=== PATIENT | male | born 1930 | race Caucasian/White ===

== ENCOUNTER 2016-06-19 14:13 | Emergency (ER) | payer MEDICARE, OTHER ==
[2016-06-19] VITALS (12 sets, daily range): BP systolic 92–150; BP diastolic 51–73; PULSE 99–111; RESP 2–22; TEMP 99.1–99.8; O2SAT 92–100
[~2016-06-19] VITALS: Ht 182.9 cm; Wt 67.8 kg
[~2016-06-19 14:13] MED LIST: NOVOLOGP2 SQ; NOVONP2 SQ; PANGESTYME PO
--- NOTE | 2016-06-19 15:14 | PD ---
HPI . Altered mental status, hypotension, respiratory distress Chief Complaint: Respiratory Distress Time Seen by Provider: 15:08 Travel History International Travel<30 days: No Contact w/Intl Traveler<30days: No Traveled to known affect area: No History of Present Illness HPI History is obtained from medics and NH record. Patient is unable to provide history. He has reportedly had a decline in his normally poor health for the past week. He has reportedly had increased confusion, low blood pressure and respiratory difficulty. The medics report that they treated him in route with 2 nebs, Solu-Medrol and IV fluids. No further history is currently unobtainable. PFSH Past Medical History Hx Anticoagulant Therapy: Yes Blood Disorders: No Anxiety: No Depression: No Cancer: No Cardiovascular Problems: Yes High Cholesterol: Yes COPD: Yes Diabetes: Yes Patient Takes Glucophage: No Genitourinary: No Hypertension: Yes Immune Disorder: No Musculoskeletal: No Neurologic: Yes (BRAIN BLEED IN 1988) Psychiatric: No Reproductive: No Respiratory: Yes Tetanus Vaccination: < 5 Years Influenza Vaccination: No Past Surgical History Abdominal Surgery: Yes (PANCREAS REMOVAL-1978) Other Surgery: Yes Social History Alcohol Use: No Tobacco Use: No Substance Use: No Allergies-Medications (Allergen,Severity, Reaction): Coded Allergies: No Known Allergies (Verified , 06/19/16) Reported Meds & Prescriptions Reported Meds & Active Scripts Active Reported Vitamin D3 (Cholecalciferol) 2,000 Unit Tab 2,000 Units PO DAILY Lantus Inj (Insulin Glargine) 1,000 Unit/10 Ml Vial 10 Units SQ HS Novolog Inj (Insulin Aspart) 1,000 Unit/10 Ml Vial 2-12 Units SQ ACHS Max dose at bedtime ( ) units; sugars less than 70,(0) units; sugars 150-199,(2) units; sugars 200-249,(4) units; sugars 250-299,(7) units; sugars 300-349,(10) units; sugars greater than 349,(12)units. Sugars >400, call Ativan (Lorazepam) 0.5 Mg Tab 0.5 Mg PO Q6H PRN Zoloft (Sertraline HCl) 25 Mg Tab 25 Mg PO HS Namenda (Memantine) 5 Mg Tab 5 Mg PO DAILY Seroquel (Quetiapine Fumarate) 50 Mg Tab 50 Mg PO HS Zenpep (Pancrelipase) 10,000-34,000-55,000 Units Cap 3 Cap PO TIDPC Pravastatin 40 Mg Tab 40 Mg PO HS Ditropan (Oxybutynin Chloride) 5 Mg Tab 5 Mg PO HS Lisinopril 20 Mg Tab 20 Mg PO DAILY Symbicort Inh (Budesonide/Formoterol Fumarate) 80-4.5 Mcg/Act Aero 2 Puff INH BID Ventolin Hfa 18 GM Inh (Albuterol Sulfate) 90 Mcg/Act Aer 2 Puff INH QID PRN Magnesium Gluconate 500 Mg Tab 500 Mg PO DAILY Amlodipine (Amlodipine Besylate) 10 Mg Tab 10 Mg PO DAILY Metoprolol Tartrate 25 Mg Tab 12.5 Mg PO BID [place] (Hydrocodone-Acetaminophen) 7.5-325 mg Tab 2 Tab PO Q6H PRN [place] (Hydrocodone-Acetaminophen) 7.5-325 mg Tab 1 Tab PO Q6H PRN Coumadin (Warfarin) 3 Mg Tab 3 Mg PO DAILY@1600 Review of Systems ROS Limitations: Clinical Condition, Altered Mental Status, Poor Historian Except as stated in HPI: all other systems reviewed are Neg Physical Exam Narrative GENERAL: Elderly patient who is lying in bed with his eyes closed. I have not heard a verbal response from him. He is moving all 4 extremities. SKIN: Warm and dry. Extremities appear cyanotic. HEAD: Atraumatic. Normocephalic. EYES: Pupils equal and round. ENT: No nasal bleeding or discharge. Mucous membranes pink and moist. NECK: Trachea midline. Neck is supple. CARDIOVASCULAR: Regular rate and rhythm. Heart sounds are normal. RESPIRATORY: No accessory muscle use. He currently has good air movement throughout. Sats on a 15 L nonrebreather mask are 93%. GASTROINTESTINAL: Abdomen soft, non-tender, nondistended. MUSCULOSKELETAL: No obvious deformities. No edema. NEUROLOGICAL: No spontaneous eye opening. No verbal response. Spontaneous movement of all 4 extremities. PSYCHIATRIC: Unable to assess. Data Data Last Documented VS Vital Signs Date Time Temp Pulse Resp B/P Pulse Ox O2 Delivery O2 Flow Rate FiO2 06/19/16 17:00 106 17 118/53 98 Nasal Cannula 4 06/19/16 16:00 60 06/19/16 14:59 99.8 Orders Complete Blood Count With Diff (06/19/16 15:08) Comprehensive Metabolic Panel (06/19/16 15:08) B-Type Natriuretic Peptide (06/19/16 15:08) Ckmb (Isoenzyme) Profile (06/19/16 15:08) Troponin I (06/19/16 15:08) Arterial Blood Gas (Abg) (06/19/16 15:08) Influenzae A/B Antigen (06/19/16 15:08) Blood Culture (06/19/16 15:08) Iv Access Insert/Monitor (06/19/16 15:08) Electrocardiogram (06/19/16 15:08) Ecg Monitoring (06/19/16 15:08) Oximetry (06/19/16 15:08) Oxygen Administration (06/19/16 15:08) Chest, Single Ap (06/19/16 15:08) Sodium Chloride 0.9% Flush (Ns Flush) (06/19/16 15:15) Albuterol-Ipratropium Neb (Duoneb Neb) (06/19/16 15:15) Resp Bipap / Cpap Non Invas Vt (06/19/16 15:08) Sodium Chlor 0.9% 1000 Ml Inj (Ns 1000 M (06/19/16 15:15) Lactic Acid Sepsis Protocol (06/19/16 15:53) Insulin Human Regular Inj (Novolin R Inj (06/19/16 17:45) Dextrose 50% In Renzo (Syr) Inj (D50w (Syr (06/19/16 17:45) Sodium Bicarb 4.2% (Inf) Inj (Sodium Bic (06/19/16 17:45) Sod Polystyrene Sulfate Enema (Kayexalat (06/19/16 17:45) Labs Laboratory Tests Test 06/19/16 06/19/16 15:21 15:45 Blood Gas Puncture Site RT RADIAL Blood Gas Patient Temperature 98.6 Blood Gas HCO3 15 mmol/L Blood Gas Base Excess -10.0 mmol/L Blood Gas Oxygen Saturation 97 % Arterial Blood pH 7.28 Arterial Blood Partial 34 mmHg Pressure CO2 Arterial Blood Partial 165 mmHG Pressure O2 Arterial Blood Oxygen Content 16.6 Vol % Arterial Blood 1.1 % Carboxyhemoglobin Arterial Blood Methemoglobin 0.7 % Blood Gas Hemoglobin 11.9 G/DL Oxygen Delivery Device BIPAP Blood Gas Ventilator Setting IPAP10/EPAP5 Blood Gas Inspired Oxygen 100 % White Blood Count 8.3 TH/MM3 Red Blood Count 3.82 MIL/MM3 Hemoglobin 11.7 GM/DL Hematocrit 37.3 % Mean Corpuscular Volume 97.5 FL Mean Corpuscular Hemoglobin 30.6 PG Mean Corpuscular Hemoglobin 31.4 % Concent Red Cell Distribution Width 16.2 % Platelet Count 188 TH/MM3 Mean Platelet Volume 9.3 FL Neutrophils (%) (Auto) 78.2 % Lymphocytes (%) (Auto) 11.5 % Monocytes (%) (Auto) 10.2 % Eosinophils (%) (Auto) 0.0 % Basophils (%) (Auto) 0.1 % Neutrophils # (Auto) 6.5 TH/MM3 Lymphocytes # (Auto) 1.0 TH/MM3 Monocytes # (Auto) 0.8 TH/MM3 Eosinophils # (Auto) 0.0 TH/MM3 Basophils # (Auto) 0.0 TH/MM3 CBC Comment DIFF FINAL Differential Comment Sodium Level 132 MEQ/L Potassium Level 6.0 MEQ/L Chloride Level 97 MEQ/L Carbon Dioxide Level 15.6 MEQ/L Anion Gap 19 MEQ/L Blood Urea Nitrogen 125 MG/DL Creatinine 4.34 MG/DL Estimat Glomerular Filtration 13 ML/MIN Rate Random Glucose 397 MG/DL Lactic Acid Level 2.7 mmol/L Calcium Level 8.4 MG/DL Total Bilirubin 0.8 MG/DL Aspartate Amino Transf 10 U/L (AST/SGOT) Alanine Aminotransferase 18 U/L (ALT/SGPT) Alkaline Phosphatase 81 U/L Total Creatine Kinase 92 U/L Troponin I LESS THAN 0.02 NG/ML Total Protein 7.0 GM/DL Albumin 2.5 GM/DL [facility] Medical Decision Making Medical Screen Exam Complete: Yes Emergency Medical Condition: Yes Medical Record Reviewed: Yes (past medical history includes diabetes, hypertension, COPD, pancreatitis and dementia) Interpretation(s) EKG shows a sinus rhythm with a ventricular rate of 102. No acute ischemic changes. Except for his rate, his EKG is unchanged from previous. Differential Diagnosis Differential diagnosis of dyspnea includes but is not limited to congestive heart failure, pneumonia, wheezing, pneumothorax, pulmonary embolism Narrative Course Patient presents to us from the group home for dyspnea, low blood pressure and worsened mental status. He does have a DNR. I will start BiPAP. CBC & BMP Diagram 06/19/16 15:45 pH 7.28, pCO2 34, pO2 165 on O2 at 100% via BiPAP. LA 2.7 Last Impressions Chest X-Ray 06/19/16 1508 Signed Impressions: Service Date/Time: Sunday, June 19, 2016 15:41 - CONCLUSION: 1. Focal consolidation left upper lobe measuring around 5 cm in maximal diameter. Close radiographic followup recommended. Minimal subsegmental basilar airspace disease. Lexx Vance MD The chest x-ray was independently viewed by me Critical Care Narrative Aggregate critical care time was minutes. Time to perform other separately billable procedures was not included in the critical care time. My time did not include minutes spent treating any other patients simultaneously or on activities that did not directly contribute to the patient's treatment. The services I provided to this patient were to treat and/or prevent clinically significant deterioration due to hypotension, respiratory distress I provided critical care services requiring my management, as noted below: Chart data review, documentation time, medication orders and management, vital sign assessments/reviewing monitor data, ordering and reviewing lab tests, ordering and interpreting/reviewing x-rays and diagnostic studies, care of the patient and discussion of the patient with the admitting physicians Physician Communication Physician Communication Dr. Chamberlain will admit. Diagnosis Primary Impression: Respiratory distress Additional Impressions: Hyperkalemia Acute renal failure Qualified Code: N17.9 - Acute renal failure, unspecified acute renal failure type Admitting Information Admitting Physician Requests: Admit Condition: Samira Shrestha MD Jun 19, 2016 15:14
[2016-06-19] MEDS ORDERED: SODIUM CHLOR 0.9% 1000 ML INJ 1,000 ML IV ONE (15:15)
[2016-06-19 15:31] LABS: BLOOD GAS CARBOXYHEMOGLOBIN 1.1 % (0-4); BLOOD GAS HCO3 15 mmol/L (22-26); BLOOD GAS METHEMOGLOBIN 0.7 % (0-2); BLOOD GAS O2 HGB SATURATION 97 % (90-100); BLOOD GAS OXYGEN CONTENT 16.6 Vol % (12.0-20.0); BLOOD GAS PCO2 34 mmHg (38-42); BLOOD GAS PO2 165 mmHG (61-120); BLOOD GAS TOTAL HGB 11.9 G/DL (12.0-16.0); CRITICAL VALUE YES; DRAW SITE RT RADIAL; FIO2 100 %; NUMBER OF ARTERIAL PUNCTURES 1; OXYGEN DEVICE BIPAP; STAT YES; TEMP CORR TO 98.6; VENT SETTINGS IPAP10/EPAP5
[2016-06-19] MEDS: RESP: ALBUTEROL 2.5 MG/IPRATROPIUM 0.5 MG NEB (SCH) INH (15:38)
[2016-06-19] MEDS: SODIUM CHLORIDE 0.9% FLUSH 10 ML FLUSH IVF PRN ×2 (16:11→18:16)
[2016-06-19] MEDS ORDERED: METO25TA3 PO (16:32)
[2016-06-19] MEDS ORDERED: HYDR-3288 PO (16:32)
[2016-06-19] MEDS ORDERED: COUM3TAB PO (16:32)
[2016-06-19] MEDS ORDERED: AMLO10TA2 PO (16:32)
[2016-06-19] MEDS ORDERED: MAGN500T5 PO (16:34)
[2016-06-19] MEDS ORDERED: SYMB80AE INH (16:34)
[2016-06-19] MEDS ORDERED: VENTAER INH (16:34)
[2016-06-19] MEDS ORDERED: LISI-515 PO (16:35)
--- NOTE | 2016-06-19 16:39 | RADRPT ---
EXAM DATE/TIME: 06/19/2016 15:41 [facility] COMPARISON: CHEST SINGLE AP, January 21, 2016, 17:22. INDICATIONS : Shortness of breath. MEDICAL HISTORY : Hypertension. SURGICAL HISTORY : None. ENCOUNTER: Initial ACUITY: 1 day PAIN SCORE: 0/10 LOCATION: Bilateral chest FINDINGS: There is focal airspace disease in the left upper lobe, possibly a small pneumonia. Close radiographi c followup recommended to exclude underlying mass. Minimal basilar opacity. No effusions. Heart size within normal limits. Tortuous aorta. CONCLUSION: 1. Focal consolidation left upper lobe measuring around 5 cm in maximal diameter. Close radiographic followup recommended. Minimal subsegmental basilar airspace disease. Lexx Vance MD on June 19, 2016 at 16:34 Board Certified Radiologist. This report was verified electronically.
[2016-06-19] MEDS ORDERED: OXYB5TAB10 PO (16:42)
[2016-06-19 16:52] LABS: AUTOMATED NEUTROPHIL # 6.5 TH/MM3 (1.8-7.7); BASOPHIL % 0.1 % (0.0-2.0); HEMATOCRIT 37.3 % (39.0-51.0); HEMO FLAGS DIFF FINAL; LYMPH % 11.5 % (9.0-44.0); MEAN CELL VOLUME 97.5 FL (80.0-100.0); MEAN CORPUSCULAR HEMOGLOBIN 30.6 PG (27.0-34.0); MEAN CORPUSCULAR HGB CONC 31.4 % (32.0-36.0); MONO % 10.2 % (0.0-8.0); NEUT % 78.2 % (16.0-70.0); PLATELET COUNT 188 TH/MM3 (150-450); RED BLOOD COUNT 3.82 MIL/MM3 (4.50-5.90); RED CELL DISTRIBUTION WIDTH 16.2 % (11.6-17.2); WHITE BLOOD COUNT 8.3 TH/MM3 (4.0-11.0)
[2016-06-19] MEDS ORDERED: SERO50TA PO (16:58)
[2016-06-19] MEDS ORDERED: PRAV40TA2 PO (16:58)
[2016-06-19] MEDS ORDERED: NAME5TAB2 PO (16:58)
[2016-06-19] MEDS ORDERED: ZENP1000 PO (16:58)
[2016-06-19] MEDS ORDERED: ZOLO25TA PO (17:02)
[2016-06-19] MEDS ORDERED: LORA-392 PO (17:05)
[2016-06-19] MEDS ORDERED: NOVOLOGP2 SQ (17:05)
[2016-06-19 17:07] LABS: ALT (GPT) 18 U/L (12-78); ANION GAP 19 MEQ/L (5-15); AST (GOT) 10 U/L (15-37); BICARBONATE 15.6 MEQ/L (21.0-32.0); BLOOD UREA NITROGEN 125 MG/DL (7-18); CHLORIDE 97 MEQ/L (98-107); GLOMERULAR FILTRATION RATE 13 ML/MIN (>89); SODIUM (NA) 132 MEQ/L (136-145)
[2016-06-19] MEDS ORDERED: LANTUS2P SQ (17:07)
[2016-06-19] MEDS ORDERED: VITA200012 PO (17:08)
[2016-06-19 17:11] LABS: ALKALINE PHOSPHATASE 81 U/L (45-117); TOTAL BILIRUBIN ADULT 0.8 MG/DL (0.2-1.0)
[2016-06-19 17:17] LABS: CREATINE KINASE 92 U/L (39-308)
[2016-06-19] MEDS ORDERED: INSULIN HUMAN REGULAR 1,000 UNITS/10 ML VIAL IV PUSH ONE ×2 (17:45→20:15)
[2016-06-19] MEDS ORDERED: SODIUM POLYSTYRENE SULFONATE 30 GM/120 ML ENEMA RECTAL ONE (17:45)
[2016-06-19] MEDS ORDERED: DEXTROSE 50% IN WATER 50 ML SYRINGE IV ONE (17:45)
[2016-06-19] MEDS ORDERED: SODIUM BICARB 4.2% (INF) INJ 5 MEQ/10 ML SYR IV PUSH ONE (17:45)
[2016-06-19] MEDS ORDERED: AZITHROMYCIN INJ 500 MG in SODIUM CHLOR 0.9% 250 ML INJ 250 ML IV SCH (18:00)
[2016-06-19] MEDS: methylPREDNISolone SOD SUCC 40 MG/1 ML VIAL IV SCH (18:16)
[2016-06-19] MEDS: metroNIDAZOLE 500 MG INJ 100 ML IV SCH (18:16)
[2016-06-19] MEDS: PIPERACIL-TAZO 4.5 GM PREMIX 100 ML IV SCH (18:16)
[2016-06-19] MEDS ORDERED: SODIUM POLYSTYRENE SULFONATE SUSP 15 GM/60 ML CUP RECTAL ONE (18:30)
[2016-06-19] MEDS ORDERED: SODIUM CHLOR 0.9% 1000 ML INJ 1,000 ML IV SCH (18:35)
--- NOTE | 2016-06-19 18:35 | HHI.HP ---
[facility] Dalton Rhodes MD Admission Diagnosis Diagnoses: (1) Severe sepsis (2) Metabolic acidosis (3) Acute metabolic encephalopathy (4) COPD with exacerbation (5) Chronic obstructive pulmonary disease with acute lower resp infection (6) Protein-calorie malnutrition, severe (7) Acute chronic obstructive pulmonary disease with respiratory failure (8) Supratherapeutic INR (9) Acute renal failure superimposed on stage 4 chronic kidney disease (10) Hyperkalemia (11) Respiratory distress Chief Complaint: AMS, shortness of breath Travel History International Travel<30 Days: No Contact w/Intl Traveler <30 Da: No Traveled to Known Affected Are: No Sepsis Criteria SIRS Criteria (2 or more): Heart rate over 90, RR > 20 or PaCO2 < 32 Severe Sepsis (+one): Lactate >2, Acute Oliguria/Renal Failure Criteria Outcome: Meets severe sepsis criteria History of Present Illness 85-year-old male with history of diabetes mellitus, HTN, COPD, recurrent pancreatitis, DVT, BPH, PVD, brain aneurysm, CKD, presents from [facility] for altered mental status, declining health over the past week. Patient is very drowsy, only able to say his name and then falls back asleep; unable to provide any reliable medical history. Most of the history obtained from [facility] by the [facility], also RN contacted patient's who reports patient is DNR, agrees to Bipap but not CPR or intubation. Per ER report, the patient has been declining over the past week, with increased confusion, low blood pressure, and difficulty breathing. Patient was transported via [facility], received duo nebs, IV Solu-Medrol, and IV fluids en route. Upon arrival, CXR showed focal consolidation MIRNA, ABG with pH 7.28, pCO2 34, pO2 165 on O2 at 100% via BiPAP. Lactic acid 2.7. Patient was placed on BiPAP with some improvement, now on 4L nasal cannula. Patient is being admitted with severe sepsis secondary to healthcare associated pneumonia. Review of Systems ROS Limitations: Clinical Condition, Altered Mental Status, Poor Historian Past Family Social History Past Medical History diabetes mellitus HTN HLD COPD recurrent pancreatitis DVT BPH PVD brain aneurysm CKD Past Surgical History Pancreatectomy Tonsillectomy Adenoidectomy Cholecystectomy Bilateral cataract surgery Hernia repair Reported Medications Vitamin D3 (Cholecalciferol) 2,000 Unit Tab 2,000 Units PO DAILY Lantus Inj (Insulin Glargine) 1,000 Unit/10 Ml Vial 10 Units SQ HS Novolog Inj (Insulin Aspart) 1,000 Unit/10 Ml Vial 2-12 Units SQ ACHS Max dose at bedtime ( ) units; sugars less than 70,(0) units; sugars 150-199,(2) units; sugars 200-249,(4) units; sugars 250-299,(7) units; sugars 300-349,(10) units; sugars greater than 349,(12)units. Sugars >400, call Ativan (Lorazepam) 0.5 Mg Tab 0.5 Mg PO Q6H PRN Zoloft (Sertraline HCl) 25 Mg Tab 25 Mg PO HS Namenda (Memantine) 5 Mg Tab 5 Mg PO DAILY Seroquel (Quetiapine Fumarate) 50 Mg Tab 50 Mg PO HS Zenpep (Pancrelipase) 10,000-34,000-55,000 Units Cap 3 Cap PO TIDPC Pravastatin 40 Mg Tab 40 Mg PO HS Ditropan (Oxybutynin Chloride) 5 Mg Tab 5 Mg PO HS Lisinopril 20 Mg Tab 20 Mg PO DAILY Symbicort Inh (Budesonide/Formoterol Fumarate) 80-4.5 Mcg/Act Aero 2 Puff INH BID Ventolin Hfa 18 GM Inh (Albuterol Sulfate) 90 Mcg/Act Aer 2 Puff INH QID PRN Magnesium Gluconate 500 Mg Tab 500 Mg PO DAILY Amlodipine (Amlodipine Besylate) 10 Mg Tab 10 Mg PO DAILY Metoprolol Tartrate 25 Mg Tab 12.5 Mg PO BID [place] (Hydrocodone-Acetaminophen) 7.5-325 mg Tab 2 Tab PO Q6H PRN [place] (Hydrocodone-Acetaminophen) 7.5-325 mg Tab 1 Tab PO Q6H PRN Coumadin (Warfarin) 3 Mg Tab 3 Mg PO DAILY@1600 Allergies: Coded Allergies: No Known Allergies (Verified , 06/19/16) Active Ordered Medications Current Medications Medications (Trade) Dose Ordered Sig/Yamel Route Start Time Stop Time Status Last Admin Sodium Chloride 2 ml 2 ml UNSCH PRN IVF 06/19/16 15:15 06/19/16 16:11 Piperacillin Sod/ Tazobactam Sod 100 ml @ 200 mls/hr Q6H IV 06/19/16 18:00 UNV Azithromycin 500 mg/Sodium Chloride 250 ml @ 250 mls/hr Q24H IV 06/19/16 18:00 UNV (Flagyl 500 Mg Inj) 100 ml @ 100 mls/hr Q8H IV 06/19/16 18:00 UNV (SoluMEDROL INJ) 40 mg Q12H IV 06/19/16 18:00 UNV Family History Mother with COPD Father with LA age 67 Social History Per EMR, No reported tobacco, alcohol, or illicit drug use. Physical Exam Vital Signs Vital Signs Date Time Temp Pulse Resp B/P Pulse Ox O2 Delivery O2 Flow Rate FiO2 06/19/16 17:00 106 17 118/53 98 Nasal Cannula 4 06/19/16 16:00 99 17 150/63 100 BiPAP 60 06/19/16 16:00 20 100 BiPAP 60 06/19/16 15:30 17 100 BiPAP 60 06/19/16 15:30 100 BiPAP 60 06/19/16 15:08 109 22 132/57 92 Non-Rebreather 15 06/19/16 14:59 99.8 111 22 132/57 92 Physical Exam GENERAL: Thin chronically ill cachectic appearing elderly male patient in [facility]. Drowsy, awakes to loud voice, able to state his name but unable to obtain any further information. SKIN: Warm and dry. No rash. HEAD: Normocephalic. Atraumatic. EYES: Pupils equal and round. No scleral icterus. No injection or drainage. ENT: No nasal bleeding or discharge. Mucous membranes slightly dry. NECK: Supple. Trachea midline. CARDIOVASCULAR: Tachycardic, regular rhythm. S1, S2 noted. 2/6 systolic murmur. RESPIRATORY: No accessory muscle use. Decreased breath sounds bilateral bases, otherwise clear to auscultation. Breath sounds equal bilaterally. GASTROINTESTINAL: Scaphoid abdomen, soft, non-tender, nondistended. Normoactive bowel sounds x4. GENITOURINARY: distended bladder. MUSCULOSKELETAL: No obvious deformities. Extremities without clubbing, cyanosis , or edema. NEUROLOGICAL: Awake and alert, oriented to self only. No obvious cranial nerve deficits. Moving all extremities. Not following commands. PSYCHIATRIC: Appropriate mood and affect; insight and judgment limited. Laboratory Laboratory Tests Test 06/19/16 06/19/16 15:21 15:45 Blood Gas Puncture Site RT RADIAL Blood Gas Patient Temperature 98.6 Blood Gas HCO3 15 Blood Gas Base Excess -10.0 Blood Gas Oxygen Saturation 97 Arterial Blood pH 7.28 Arterial Blood Partial 34 Pressure CO2 Arterial Blood Partial 165 Pressure O2 Arterial Blood Oxygen Content 16.6 Arterial Blood 1.1 Carboxyhemoglobin Arterial Blood Methemoglobin 0.7 Blood Gas Hemoglobin 11.9 Oxygen Delivery Device BIPAP Blood Gas Ventilator Setting IPAP10/EPAP5 Blood Gas Inspired Oxygen 100 White Blood Count 8.3 Red Blood Count 3.82 Hemoglobin 11.7 Hematocrit 37.3 Mean Corpuscular Volume 97.5 Mean Corpuscular Hemoglobin 30.6 Mean Corpuscular Hemoglobin 31.4 Concent Red Cell Distribution Width 16.2 Platelet Count 188 Mean Platelet Volume 9.3 Neutrophils (%) (Auto) 78.2 Lymphocytes (%) (Auto) 11.5 Monocytes (%) (Auto) 10.2 Eosinophils (%) (Auto) 0.0 Basophils (%) (Auto) 0.1 Neutrophils # (Auto) 6.5 Lymphocytes # (Auto) 1.0 Monocytes # (Auto) 0.8 Eosinophils # (Auto) 0.0 Basophils # (Auto) 0.0 CBC Comment DIFF FINAL Differential Comment Sodium Level 132 Potassium Level 6.0 Chloride Level 97 Carbon Dioxide Level 15.6 Anion Gap 19 Blood Urea Nitrogen 125 Creatinine 4.34 Estimat Glomerular Filtration 13 Rate Random Glucose 397 Lactic Acid Level 2.7 Calcium Level 8.4 Total Bilirubin 0.8 Aspartate Amino Transf 10 (AST/SGOT) Alanine Aminotransferase 18 (ALT/SGPT) Alkaline Phosphatase 81 Total Creatine Kinase 92 Troponin I LESS THAN 0.02 Total Protein 7.0 Albumin 2.5 Date/Time Procedure Status Source Growth 06/19/16 15:45 Aerobic Blood Culture Received Blood Peripheral Pending 06/19/16 15:45 Anaerobic Blood Culture Received Blood Peripheral Pending Result Diagram: 06/19/16 1545 06/19/16 1545 Imaging Last Impressions Chest X-Ray 06/19/16 1508 Signed Impressions: Service Date/Time: [place], June 19, 2016 15:41 - CONCLUSION: 1. Focal consolidation left upper lobe measuring around 5 cm in maximal diameter. Close radiographic followup recommended. Minimal subsegmental basilar airspace disease. Lexx Vance MD Assessment and Plan Problem List: (1) Hyperkalemia ICD Code: E87.5 Status: Acute (2) Acute renal failure ICD Code: N17.9 Status: Acute (3) Respiratory distress ICD Code: R06.00 Status: Acute (4) Acute renal failure superimposed on stage 4 chronic kidney disease ICD Code: N17.9 Status: Acute (5) Supratherapeutic INR ICD Code: R79.1 Status: Acute (6) Acute chronic obstructive pulmonary disease with respiratory failure ICD Code: J96.00 Status: Acute (7) Protein-calorie malnutrition, severe ICD Code: E43 Status: Acute (8) Chronic obstructive pulmonary disease with acute lower resp infection ICD Code: J44.0 Status: Acute (9) Severe sepsis ICD Code: A41.9 Status: Acute (10) Metabolic acidosis ICD Code: E87.2 Status: Acute (11) Acute metabolic encephalopathy ICD Code: G93.41 Status: Acute (12) COPD with exacerbation ICD Code: J44.1 Status: Acute Assessment and Plan 85-year-old male with history of diabetes mellitus, HTN, COPD, recurrent pancreatitis, DVT, BPH, PVD, brain aneurysm, CKD, presents from [facility] for altered mental status, declining health over the past week. Severe sepsis: Tachycardic HR 111, Tachypneic RR 22, lactic acid 2.7. Source- pneumonia, see below. Check blood cultures. Started IV antibiotics for HCAP. S/ p IVF bolus in ER, continue maintenance fluids until tolerating oral intake. Monitor labs, repeat lactic acid. Monitor on telemetry. Monitor Is&Os. Admit to ICU. Health Care Associated Pneumonia: CXR images reviewed by me, shows focal consolidation MIRNA. Continue IV Zosyn, IV Azithro, IV Flagyl. S/p Bipap in ER, now on 4L NC, bipap prn. IV Solumedrol 40mg q12h. Duonebs q6h yamel and q2h prn. Monitor for improvement. Acute COPD Exacerbation: mild wheezing on exam, s/p IV Solumedrol and duonebs en route via [facility]. Continue IV Solumedrol 40mg q12h and duonebs q6h yamel and s2h prn. Continue Symbicort. Unlikely PE while on Coumadin if INR therapeutic. Acute Respiratory Failure: requiring Bipap, tachypneic. Multifactorial secondary to pneumonia and COPD. On antibiotics, duonebs, bipap, steroids. Close monitoring in ICU. Metabolic Acidosis: secondary to respiratory distress with pneumonia. ABG with pH 7.28, pCO2 34, pO2 165 on O2 at 100% via BiPAP. Giving IVF. Monitor BMP. Hyperkalemia: K 6.0. Given dextrose, insulin, sodium bicarb, and kayexalate in the ER. Repeat K tonight. Acute Metabolic Encephalopathy: presented with AMS, oriented to self only. Secondary to sepsis as above. Neuro checks. Monitor for improvement. Acute Renal Failure: Cr 4.34, previously 1.0 in . S/p IVF bolus, continue on IVF with NS. Hold lisinopril. Hyponatremia: likely secondary to dehydration/poor oral intake. Giving IVF with NS. Repeat labs. Diabetes Mellitus: chronic, hold patient's Lantus 10u sq hs. Monitor Accu-Cheks and cover with low-dose SSI. Dementia with Anxiety/Agitation: Patient's reports the patient does become agitated at night, gives permission for restraints as needed. Continue patient' s Namenda, Seroquel, Zoloft. Hypertension: chronic, hold patient's lisinopril with IVANNA. Continue patient's Norvasc and Metoprolol. Monitor BP, adjust antihypertensives as needed. Hyperlipidemia: chronic, continue patient's statin. Urinary Retention: with currently distended bladder on exam. Check bladder scan , place Abdalla if > 400cc. Continue patient's Oxybutynin. Failure to Thrive, Moderate Protein Calorie Malnutrition: Albumin 2.5. Patient cachetic on exam. Consult excavating machine operator. Consider palliative care vs hospice consult. DVT: on Coumadin, check PT/INR and continue Coumadin. GI Prophylaxis: PPI DVT Prophylaxis: on Coumadin Written by Loly Mccoy, acting as scribe for Dr. Chamberlain on 06/19/16 at 18: 34. All or portions of this note were transcribed by scribe Loly Mccoy. I, Dr. Kyree Chamberlain personally performed the history, physical exam, and medical decision making; and confirmed the accuracy of the information in the transcribed note. Authenticated by Dr. Kyree Chamberlain on 06/19/16 at 18:34. 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 In the case of services not specified as inpatient-only, they are appropriately provided as inpatient services in accordance with the 2-midnight benchmark. Estimated LOS (days): 5 days is the estimated time the patient will need to remain in the hospital, assuming treatment plan goals are met and no additional complications. Post-Hospital Plan: SNF Problem Qualifiers (1) Acute renal failure: Qualified Code: N17.9 - Acute renal failure, unspecified acute renal failure type Loly Mccoy PA-C Jun 19, 2016 18:35 Kyree Chamberlain MD Jun 19, 2016 19:05
[2016-06-19 18:44] LABS: LACTIC ACID GHOST NOT REPORTABLE
[2016-06-19] MEDS ORDERED: BISACODYL 10 MG SUPP PR PRN (18:45)
[2016-06-19] MEDS ORDERED: NALOXONE HCL 0.4 MG/ML AMP IV PRN (18:45)
[2016-06-19] MEDS ORDERED: GLUCAGON 1 MG/ML VIAL OTHER PRN (18:45)
[2016-06-19] MEDS ORDERED: RESP: ALBUTEROL 2.5 MG/IPRATROPIUM 0.5 MG NEB (PRN) NEB (18:45)
[2016-06-19] MEDS ORDERED: ONDANSETRON HCL 4 MG/2 ML VIAL IVP PRN (18:45)
[2016-06-19] MEDS ORDERED: SODIUM CHLORIDE 0.9% FLUSH 10 ML FLUSH IV FLUSH PRN (18:45)
[2016-06-19] MEDS ORDERED: ACETAMINOPHEN 325 MG TAB PO PRN (18:45)
[2016-06-19] MEDS ORDERED: ACETAMINOPHEN/HYDROcodone 325 MG/5 MG TAB PO PRN (18:45)
[2016-06-19] MEDS ORDERED: DEXTROSE 50% IN WATER 50 ML VIAL(D50) IV PUSH PRN (18:45)
[2016-06-19 19:22] LABS: INTERNATIONAL NORMALIZED RATIO 4.7 RATIO; PROTHROMBIN TIME - PATIENT 55.1 SEC (9.8-11.6)
[2016-06-19] MEDS: RESP: ALBUTEROL 2.5 MG/IPRATROPIUM 0.5 MG NEB (SCH) NEB (19:40)
[2016-06-19 20:03] LABS: BICARBONATE 17.4 MEQ/L (21.0-32.0)
[2016-06-19 20:04] LABS: POTASSIUM 5.7 MEQ/L (3.5-5.1)
[2016-06-19] MEDS: DEXT 5%-NACL 0.9% 1000 ML INJ 1,000 ML IV SCH (20:13)
[2016-06-19] MEDS ORDERED: INSULIN REGULAR (IV INFUSION) 100 UNITS in SODIUM CHLORIDE 0.9% INJ 99 ML IV SCH (20:15)
[2016-06-19] MEDS ORDERED: POTASSIUM CHLOR 20 MEQ PREMIX 100 ML IV PRN ×6 (20:15)
[2016-06-19] MEDS ORDERED: SODIUM PHOSPHATE INJ 15 MMOL in SODIUM CHLORIDE 0.9% INJ 100 ML IV PRN (20:15)
[2016-06-19] MEDS ORDERED: CHLORHEXIDINE GLUCONATE 2 % 1 PACK (2 CLOTHS) TOP PRN (20:15)
[2016-06-19] MEDS ORDERED: MISCELLANEOUS NURSING INFORMATION XX SCH (20:15)
[2016-06-19] MEDS ORDERED: SODIUM BICARBONATE 8.4% SOLN 50 MEQ/50 ML VIAL IV PRN ×2 (20:15)
[2016-06-19] MEDS ORDERED: POTASSIUM CHLOR 40 MEQ PREMIX 100 ML IV PRN ×2 (20:15)
[2016-06-19] MEDS: LIPASE/PROTEASE/AMYLASE (12,000/38,000/60,000) CAP PO SCH (20:20)
[2016-06-19] MEDS: SODIUM CHLOR 0.9% 1000 ML INJ 1,000 ML IV SCH (20:25)
[2016-06-19] MEDS: BUDESONIDE-FORMOTEROL 80/4.5 MCG INHALER INH SCH (20:27)
[2016-06-19] MEDS ORDERED: PRAVASTATIN SOD 40 MG TAB PO SCH (21:00)
[2016-06-19] MEDS ORDERED: OXYBUTYNIN CHLORIDE 5 MG TAB PO SCH (21:00)
[2016-06-19] MEDS: METOPROLOL TARTRATE 25 MG TAB PO SCH (21:00)
[2016-06-19] MEDS ORDERED: INSULIN ASPART SUPPLEMENTAL SCALE SQ SCH (21:00)
[2016-06-19] MEDS ORDERED: QUEtiapine FUMARATE 25 MG TAB PO SCH (21:00)
[2016-06-19] MEDS ORDERED: PANTOPRAZOLE SODIUM 40 MG VIAL IV PUSH SCH (21:00)
[2016-06-19] MEDS: SODIUM CHLORIDE 0.9% FLUSH 10 ML FLUSH IV FLUSH SCH (21:14)
[2016-06-19 22:39] LABS: BETA-HYDROXYBUTYRATE 5.86 MMOL/L (0.00-0.39)
[2016-06-19 23:06] LABS: BACTERIA, URINE RARE /hpf; BLOOD, URINE SMALL (NEG); COMMENT (UR) CATH-CULTURE IND; CULTURE IF INDICATED CATH CULTURE IND; GLUCOSE,URINE 150 mg/dL (NEG); HYALINE CAST, URINE 1 /lpf (RARE); KETONE, URINE NEG (NEG); MUCUS URINE FEW /lpf (OCC); NITRITE,URINE NEG (NEG); SQUAMOUS EPITHELIAL CELL URINE <1 /hpf (0-5); URINE COLOR YELLOW (YELLW/STRAW)
[2016-06-20] VITALS (8 sets, daily range): BP systolic 73–86; BP diastolic 38–45; PULSE 81–94; RESP 18–27; TEMP 98–98.6; O2SAT 98–100
[2016-06-20] MEDS ORDERED: SODIUM CHLOR 0.9% 1000 ML INJ 1,000 ML IV ONE (00:30)
[2016-06-20] MEDS: PIPERACIL-TAZO 4.5 GM PREMIX 100 ML IV SCH ×2 (01:03→05:40)
[2016-06-20] MEDS: DEXT 5%-NACL 0.9% 1000 ML INJ 1,000 ML IV SCH (01:03)
[2016-06-20 01:24] LABS: BETA-HYDROXYBUTYRATE 0.23 MMOL/L (0.00-0.39); BICARBONATE 20.5 MEQ/L (21.0-32.0); MAGNESIUM 1.7 MG/DL (1.5-2.5); POTASSIUM 3.7 MEQ/L (3.5-5.1)
[2016-06-20 01:50] LABS: CALCIUM-PROTEIN CORRECTED 7.3 MG/DL (8.5-10.1)
[2016-06-20] MEDS: metroNIDAZOLE 500 MG INJ 100 ML IV SCH ×2 (01:55→09:17)
[2016-06-20] MEDS ORDERED: CALCIUM GLUCONATE INJ 1 GM in SODIUM CHLORIDE 0.9% INJ 90 ML IV ONE (02:00)
[2016-06-20] MEDS ORDERED: INSULIN REGULAR (IV INFUSION) 100 UNITS in SODIUM CHLORIDE 0.9% INJ 99 ML IV SCH (02:30)
[2016-06-20] MEDS ORDERED: MISC INFORMATION XX ONE (02:30)
[2016-06-20] MEDS ORDERED: LACTATED RINGER'S 1000 ML INJ 1,000 ML IV ONE (02:30)
[2016-06-20] MEDS: SODIUM CHLOR 0.9% 1000 ML INJ 1,000 ML IV SCH ×2 (02:53→09:33)
[2016-06-20 03:03] LABS: LACTIC ACID GHOST NOT REPORTABLE
[2016-06-20 03:47] LABS: INTERNATIONAL NORMALIZED RATIO 5.9 RATIO; PROTHROMBIN TIME - PATIENT 70.6 SEC (9.8-11.6)
[2016-06-20 03:50] LABS: AUTOMATED NEUTROPHIL # 7.7 TH/MM3 (1.8-7.7); BASOPHIL % 0.1 % (0.0-2.0); HEMATOCRIT 33.9 % (39.0-51.0); HEMO FLAGS DIFF FINAL; LYMPH % 1.4 % (9.0-44.0); LYMPHOCYTE # 0.1 TH/MM3 (1.0-4.8); MEAN CELL VOLUME 94.4 FL (80.0-100.0); MEAN CORPUSCULAR HGB CONC 32.9 % (32.0-36.0); MONO % 9.4 % (0.0-8.0); NEUT % 89.1 % (16.0-70.0); PLATELET COUNT 196 TH/MM3 (150-450); RED BLOOD COUNT 3.59 MIL/MM3 (4.50-5.90); RED CELL DISTRIBUTION WIDTH 15.2 % (11.6-17.2); WHITE BLOOD COUNT 8.7 TH/MM3 (4.0-11.0)
[2016-06-20] MEDS ORDERED: CHLORHEXIDINE GLUCONATE 2 % 1 PACK (2 CLOTHS) TOP SCH (04:00)
[2016-06-20 04:02] LABS: ALKALINE PHOSPHATASE 62 U/L (45-117); ALT (GPT) 15 U/L (12-78); ANION GAP 8 MEQ/L (5-15); AST (GOT) 11 U/L (15-37); BICARBONATE 24.7 MEQ/L (21.0-32.0); BLOOD UREA NITROGEN 118 MG/DL (7-18); CHLORIDE 108 MEQ/L (98-107); GLOMERULAR FILTRATION RATE 15 ML/MIN (>89); MAGNESIUM 2.3 MG/DL (1.5-2.5); POTASSIUM 4.6 MEQ/L (3.5-5.1); SODIUM (NA) 141 MEQ/L (136-145); TOTAL BILIRUBIN ADULT 0.6 MG/DL (0.2-1.0)
[2016-06-20] MEDS: RESP: ALBUTEROL 2.5 MG/IPRATROPIUM 0.5 MG NEB (SCH) NEB ×2 (04:58→08:17)
[2016-06-20] MEDS: methylPREDNISolone SOD SUCC 40 MG/1 ML VIAL IV SCH (05:39)
[2016-06-20] MEDS ORDERED: SODIUM CHLORID 0.9% 500 ML INJ 500 ML IV PRN (05:45)
--- NOTE | 2016-06-20 07:46 | HHI.PR ---
Subjective Remarks Follow-up severe sepsis/HCAP/acute on chronic kidney disease stage IV/metabolic acidosis/acute on chronic respiratory failure 06/20/16-patient seen and examined, lethargic but responds to sternal rubs, worsening renal function, INR up, hypotensive despite boluses NS Objective Vitals Vital Signs Date Time Temp Pulse Resp B/P Pulse Ox O2 Delivery O2 Flow Rate FiO2 06/20/16 06:00 89 06/20/16 04:00 88 06/20/16 04:00 98.0 88 18 86/45 99 06/20/16 02:00 92 06/20/16 01:00 100 Partial Rebreather 15.00 06/20/16 00:00 98.1 94 20 81/38 98 06/20/16 00:00 93 06/19/16 22:47 99.1 109 20 92/52 96 Non-Rebreather 15 06/19/16 21:15 103 20 95/51 97 Non-Rebreather 15 06/19/16 19:43 99 Non-Rebreather 15.00 06/19/16 19:00 102 20 105/73 98 06/19/16 18:22 111 22 110/52 94 Nasal Cannula 4 06/19/16 17:00 106 17 118/53 98 Nasal Cannula 4 06/19/16 16:00 99 17 150/63 100 BiPAP 60 06/19/16 16:00 20 100 BiPAP 60 06/19/16 15:38 96 60 06/19/16 15:30 17 100 BiPAP 60 06/19/16 15:30 100 BiPAP 60 06/19/16 15:18 99 100 06/19/16 15:08 109 22 132/57 92 Non-Rebreather 15 06/19/16 14:59 99.8 111 22 132/57 92 I/O 06/19/16 06/19/16 06/19/16 06/20/16 06/20/16 06/20/16 07:00 15:00 23:00 07:00 15:00 23:00 Intake Total 3410 ml Output Total 2000 ml 450 ml Balance -2000 ml 2960 ml Intake Oral 0 ml IV Total 3410 ml Output Urine Total 2000 ml 450 ml # Voids 0 # Bowel Movements 0 Result Diagram: 06/20/16 0328 06/20/16 0328 Imaging Last Impressions Chest X-Ray 06/19/16 1508 Signed Impressions: Service Date/Time: Sunday, June 19, 2016 15:41 - CONCLUSION: 1. Focal consolidation left upper lobe measuring around 5 cm in maximal diameter. Close radiographic followup recommended. Minimal subsegmental basilar airspace disease. Lexx Vance MD Objective Remarks GENERAL: NAD however lethargic SKIN: Warm and dry. HEAD: Normocephalic. EYES: No scleral icterus. No injection or drainage. NECK: Supple, trachea midline. No JVD or lymphadenopathy. CARDIOVASCULAR: Regular rate and rhythm without murmurs, gallops, or rubs. RESPIRATORY: Breath sounds equal bilaterally. No accessory muscle use. GASTROINTESTINAL: Abdomen soft, non-tender, nondistended. MUSCULOSKELETAL: No cyanosis, or edema. BACK: Nontender without obvious deformity. No CVA tenderness. A/P Problem List: (1) Hyperkalemia ICD Code: E87.5 Status: Acute (2) Acute renal failure ICD Code: N17.9 Status: Acute (3) Respiratory distress ICD Code: R06.00 Status: Acute (4) Severe sepsis ICD Code: A41.9 Status: Acute (5) Chronic obstructive pulmonary disease with acute lower resp infection ICD Code: J44.0 Status: Acute (6) Acute chronic obstructive pulmonary disease with respiratory failure ICD Code: J96.00 Status: Acute (7) COPD with exacerbation ICD Code: J44.1 Status: Acute (8) Acute metabolic encephalopathy ICD Code: G93.41 Status: Acute (9) Metabolic acidosis ICD Code: E87.2 Status: Acute (10) Supratherapeutic INR ICD Code: R79.1 Status: Acute (11) Hypotension ICD Code: I95.9 Status: Acute (12) Acute renal failure superimposed on stage 4 chronic kidney disease ICD Code: N17.9 Status: Acute (13) Protein-calorie malnutrition, severe ICD Code: E43 Status: Acute Assessment and Plan 85-year-old male with history of diabetes mellitus, HTN, COPD, recurrent pancreatitis, DVT, BPH, PVD, brain aneurysm, CKD, presents from [facility] for altered mental status, declining health over the past week. Severe sepsis: . Source-pneumonia, Continue IV Zosyn, IV Azithro, IV Flagyl pending blood cultures. Health Care Associated Pneumonia: CXR shows focal consolidation MIRNA. Continue IV Zosyn, IV Azithro, IV Flagyl. S/p Bipap in ER, now on 4L NC, bipap prn. IV Solumedrol 40mg q12h. Duonebs q6h tasia and q2h prn. Monitor for improvement. Acute COPD Exacerbation: Continue IV Solumedrol 40mg q12h and duonebs q6h tasia and s2h prn. Continue Symbicort. Acute Respiratory Failure: Multifactorial secondary to pneumonia and COPD. On antibiotics, duonebs, bipap, steroids. Close monitoring in ICU. Metabolic Acidosis: secondary to respiratory distress with pneumonia. ABG with pH 7.28, pCO2 34, pO2 165 on O2 at 100% via BiPAP. Giving IVF. Monitor BMP. Hyperkalemia: Resolved status post treatment with dextrose, insulin, sodium bicarb, and kayexalate in the ER. Acute Metabolic Encephalopathy: presented with AMS, oriented to self only. Secondary to sepsis as above. Neuro checks. Monitor for improvement. Acute on chronic kidney disease stage IV : Cr 4.34 admission, previously 1.0 in . continue on IVF with NS. Hold lisinopril. Consult nephrology secondary to hypotension will give albumin IV 25 mg every 12H1 day. Check renal ultrasound Hyponatremia: likely secondary to dehydration/poor oral intake. Resolve with IVF with NS. Diabetes Mellitus: chronic, hold patient's Lantus 10u sq hs. patient was started on insulin drip overnight which I would discontinue today. Monitor Accu -Cheks and cover with low-dose SSI. Dementia with Anxiety/Agitation: Patient's reports the patient does become agitated at night, gives permission for restraints as needed. Continue patient' s Namenda, Seroquel, Zoloft. However secondary to lethargy hold Seroquel Hypertension: chronic, hold patient's lisinopril with IVANNA. However due to hypotension with hold patient's Norvasc and Metoprolol. Monitor BP, adjust antihypertensives as needed. Hypotension:NS boluses; and hold oral antihypertensive medication Hyperlipidemia: chronic, continue statin. Urinary Retention: Continue Oxybutynin. Failure to Thrive, Moderate Protein Calorie Malnutrition: Albumin 2.5. Patient cachetic on exam. Consult health program specialist. Supratherapeutic INR: Hold Coumadin and monitor INR DVT: Due to supratherapeutic INR, will hold Coumadin and monitor INR GI Prophylaxis: PPI DVT Prophylaxis: Bilateral SCDs Consult hospice Consult speech therapy for swallow eval as patient currently nothing by mouth Total critical care time spent 35 minutes Problem Qualifiers (1) Acute renal failure: Qualified Code: N17.9 - Acute renal failure, unspecified acute renal failure type Kyree Chamberlain MD Jun 20, 2016 07:46 Kyree Chamberlain MD Jun 20, 2016 07:46
[2016-06-20] MEDS ORDERED: ALBUMIN HUMAN 25% 25 GM/100 ML BAGP IV SCH (08:00)
[2016-06-20] MEDS ORDERED: DEXTROSE 50% IN WATER 50 ML VIAL(D50) IV PUSH PRN (08:00)
[2016-06-20] MEDS ORDERED: GLUCAGON 1 MG/ML VIAL OTHER PRN (08:00)
[2016-06-20] MEDS ORDERED: MEMANTINE HCL 5 MG TAB PO SCH (09:00)
[2016-06-20] MEDS: METOPROLOL TARTRATE 25 MG TAB PO SCH (09:00)
[2016-06-20] MEDS: BUDESONIDE-FORMOTEROL 80/4.5 MCG INHALER INH SCH (09:00)
[2016-06-20] MEDS: SODIUM CHLORIDE 0.9% FLUSH 10 ML FLUSH IV FLUSH SCH (09:16)
[2016-06-20] MEDS: LIPASE/PROTEASE/AMYLASE (12,000/38,000/60,000) CAP PO SCH (09:17)
--- NOTE | 2016-06-20 09:58 | HHI.PR ---
Addendum to Inpatient Note Addendum Reason: Additional Documentation Additional Information Patient will be discharged to Hospice care center today Discharge patient to Hospice care center Condition on discharge: Guarded soft diet Ad Sagrario activity Rx written:none Kyree Chamberlain MD Jun 20, 2016 09:58
[2016-06-20] MEDS ORDERED: INSULIN ASPART SUPPLEMENTAL SCALE SQ SCH (11:00)
--- NOTE | 2016-06-20 11:31 | HHI.PR ---
Subjective Remarks Nephrology consult place however it is noted patient is being transferred to hospice. We'll therefore defer seeing the patient. Please reconsult if needed. Objective Vital Signs Date Time Temp Pulse Resp B/P Pulse Ox O2 Delivery O2 Flow Rate FiO2 06/20/16 10:00 87 06/20/16 08:19 99 Partial Rebreather 15.00 06/20/16 08:00 98.6 82 27 73/38 98 06/20/16 08:00 81 06/20/16 07:00 99 Partial Non-Rebreather 15.00 06/20/16 06:00 89 06/20/16 04:00 88 06/20/16 04:00 98.0 88 18 86/45 99 06/20/16 02:00 92 06/20/16 01:00 100 Partial Rebreather 15.00 06/20/16 00:00 98.1 94 20 81/38 98 06/20/16 00:00 93 06/19/16 22:47 99.1 109 20 92/52 96 Non-Rebreather 15 06/19/16 21:15 103 20 95/51 97 Non-Rebreather 15 06/19/16 19:43 99 Non-Rebreather 15.00 06/19/16 19:00 102 20 105/73 98 06/19/16 18:22 111 22 110/52 94 Nasal Cannula 4 06/19/16 17:00 106 17 118/53 98 Nasal Cannula 4 06/19/16 16:00 99 17 150/63 100 BiPAP 60 06/19/16 16:00 20 100 BiPAP 60 06/19/16 15:38 96 60 06/19/16 15:30 17 100 BiPAP 60 06/19/16 15:30 100 BiPAP 60 06/19/16 15:18 99 100 06/19/16 15:08 109 22 132/57 92 Non-Rebreather 15 06/19/16 14:59 99.8 111 22 132/57 92 I/O 06/19/16 06/19/16 06/19/16 06/20/16 06/20/16 06/20/16 07:00 15:00 23:00 07:00 15:00 23:00 Intake Total 3410 ml Output Total 2000 ml 450 ml Balance -2000 ml 2960 ml Intake Oral 0 ml IV Total 3410 ml Output Urine Total 2000 ml 450 ml # Voids 0 # Bowel Movements 0 Result Diagram: 06/20/16 0328 06/20/16 0328 Haroon Bruce MD Jun 20, 2016 11:31
[2016-06-20] MEDS ORDERED: WARFARIN SOD 3 MG TAB PO SCH (16:00)
--- NOTE | 2016-06-20 17:42 | EKG ---
Date Performed: 06/19/2016 Time Performed: 16:01:28 PTAGE: 85 years EKG: SINUS TACHYCARDIA Rate has increased since prior tracing, otherwise largely Unchanged. ABNO RMAL RHYTHM ECG PREVIOUS TRACING : 03/10/2008 08.36 DOCTOR: Ezio Kessler Interpretating Date/Time 06/20/2016 17:40:55
== END 2016-06-20 11:59 | disposition hospice, inpatient (51) ==
LOC: NEPA 14:13 → UNDOADMIN 18:03 → NEDA 18:03 → N03B 23:11 → UNDODISIN 06-20 11:59 → NEPA 06-20 11:59
DX: A41.9 Sepsis, unspecified organism (principal); J96.21 Acute and chronic respiratory failure with hypoxia; E43 Unspecified severe protein-calorie malnutrition; G93.41 Metabolic encephalopathy; J18.9 Pneumonia, unspecified organism; N17.9 Acute kidney failure, unspecified; N18.4 Chronic kidney disease, stage 4 (severe); E87.2 Acidosis; J44.0 Chronic obstructive pulmonary disease with (acute) lower respiratory infection; F03.90 Unspecified dementia, unspecified severity, without behavioral disturbance, psychotic disturbance, mood disturbance, and anxiety; J44.1 Chronic obstructive pulmonary disease with (acute) exacerbation; E87.1 Hypo-osmolality and hyponatremia; R64 Cachexia; Z66 Do not resuscitate; R65.20 Severe sepsis without septic shock; E87.5 Hyperkalemia; R79.1 Abnormal coagulation profile; N40.1 Benign prostatic hyperplasia with lower urinary tract symptoms; R33.8 Other retention of urine; E78.5 Hyperlipidemia, unspecified; I73.9 Peripheral vascular disease, unspecified; Y95 Nosocomial condition; E86.0 Dehydration; F41.9 Anxiety disorder, unspecified; R62.7 Adult failure to thrive; E11.22 Type 2 diabetes mellitus with diabetic chronic kidney disease; E11.51 Type 2 diabetes mellitus with diabetic peripheral angiopathy without gangrene; I12.9 Hypertensive chronic kidney disease with stage 1 through stage 4 chronic kidney disease, or unspecified chronic kidney disease; Z86.718 Personal history of other venous thrombosis and embolism; Z79.01 Long term (current) use of anticoagulants; Z68.20 Body mass index [BMI] 20.0-20.9, adult; Z79.4 Long term (current) use of insulin
CPT/HCPCS: 36600; 71010; 80053; 81001; 82010; 82550; 82805; 82948; 83605; 83735; 83880; 84100; 84155; 84484; 85025; 85610; 87040; 87086; 87205; 87641; 93005; 94002; 94640; 94664; 96360; 99291; C9113; J0456; J0610; J1815; J1817; J2543; J2920; J7030; J7040; J7050; J7120; P9047; 80048